=== PATIENT | male | born 1990 | race African-American/Black ===

== ENCOUNTER 2022-04-10 20:28 | Emergency (ER) | payer BC ==
[2022-04-10] MEDS ORDERED: LIDOCAINE 1% MPF 5 ML VIAL ONE (20:42)
--- NOTE | 2022-04-10 21:18 | ER ---
Nurse's Notes [facility] Name: Elian Gonzalez Age: 31 yrs Sex: Male : 1990 Arrival Date: 04/10/2022 Time: 20:29 Bed 6 Private MD: Diagnosis: Laceration without foreign body of left forearm Presentation: 04/10 20:36 Chief complaint: Patient states: States 'I've been trying to go to medical [facility] for my ll3 anxiety and they wouldn't let me go so I cut myself", states cutting self is a "stress reliever", denies pain at this time. Coronavirus screen: Vaccine status: Patient reports receiving the 2nd dose of the covid vaccine. At this time, the client does not indicate any symptoms associated with coronavirus-19. Ebola Screen: No symptoms or risks identified at this time. Initial Sepsis Screen: Does the patient meet any 2 criteria? No. Patient's initial sepsis screen is negative. Does the patient have a suspected source of infection? No. Patient's initial sepsis screen is negative. Risk Assessment: Do you want to hurt yourself or someone else? Patient reports desire/thoughts of hurting themselves or someone else. Provider notified. Other: States cutting self is a "stress reliever". Onset of symptoms was April 10, 2022 at 18:30. 20:36 Method Of Arrival: Law Enforcement: [place] [employer] ll3 20:36 Acuity: CHRISTELLE 3 ll3 Triage Assessment: 20:40 General: Appears comfortable, Behavior is calm, cooperative. Pain: Denies pain. Neuro: ll3 Level of Consciousness is awake, alert, obeys commands, Oriented to person, place, time, situation. Derm: Wound noted left arm Reports Cutting self Denies pain. Musculoskeletal: Circulation, motion, and sensation intact. Historical: - Allergies: 20:40 No Known Allergies; ll3 - Home Meds: 20:40 Depakote Oral [Active]; Ritalin Oral [Active]; Cogentin Oral [Active]; ll3 - PMHx: 20:40 Schizophrenia; Depressive disorder; Anxiety; ADHD; Bipolar disorder; ll3 - PSHx: 20:40 None; ll3 - Immunization history:: Client reports receiving the 2nd dose of the Covid vaccine. - Social history:: Smoking status: Patient denies any tobacco usage or history of. Screenin:29 Abuse screen: Denies threats or abuse. Denies injuries from another. Nutritional lg3 screening: No deficits noted. Tuberculosis screening: No symptoms or risk factors identified. Fall Risk None identified. Assessment: 21:29 General: Appears in no apparent distress. comfortable, Behavior is calm, cooperative. lg3 Pain: Denies pain. Neuro: No deficits noted. Level of Consciousness is awake, alert, obeys commands, Oriented to person, place, time, situation. Cardiovascular: No deficits noted. Denies chest pain, shortness of breath, Capillary refill < 3 seconds Clubbing of nail beds is absent JVD is absent Patient's skin is warm and dry. Respiratory: No deficits noted. Airway is patent Trachea midline Respiratory effort is even, unlabored, Respiratory pattern is regular, symmetrical, Breath sounds are clear bilaterally. Denies shortness of breath. GI: No deficits noted. No signs and/or symptoms were reported involving the gastrointestinal system. Abdomen is flat, non-distended. : No deficits noted. No signs and/or symptoms were reported regarding the genitourinary system. EENT: No deficits noted. No signs and/or symptoms were reported regarding the EENT system. Derm: Wound noted left arm X3. Musculoskeletal: No deficits noted. No signs and/or symptoms reported regarding the musculoskeletal system. Circulation, motion, and sensation intact. Range of motion: intact in all extremities. Injury Description: Laceration sustained to left arm. Vital Signs: 20:36 BP 121 / 82; Pulse 71; Resp 16; Temp 98.3(O); Pulse Ox 99% on R/A; Weight 102.06 kg ll3 (R); Height 6 ft. 1 in. (185.42 cm) (R); Pain 0/10; 21:29 BP 122 / 76; Pulse 70; Resp 17 S; Pulse Ox 100% on R/A; lg3 20:36 Body Mass Index 29.68 (102.06 kg, 185.42 cm) ll3 ED Course: 20:29 Patient arrived in ED. mw2 20:31 Geraldine Crews F[facility]C is [facility]. kb 20:31 Dennis Dugan MD is Attending Physician. kb 20:37 Nancie Davis, NIKITA is Primary Nurse. lg3 20:39 Triage completed. ll3 20:40 Arm band placed on Patient placed in an exam room, on a stretcher, on pulse oximetry. ll3 21:29 Patient has correct armband on for positive identification. Bed in low position. Call lg3 light in reach. Side rails up X2. corrections officers at bedside. Client placed on continuous cardiac and pulse oximetry monitoring. NIBP monitoring applied. 21:29 Assist provider with laceration repair on left arm using sutures. Set up tray. lg3 Performed by Geraldine HODGES Dressed with Kerlix, Patient tolerated well. Patient did not have IV access during this emergency room visit. Administered Medications: 21:29 Drug: Lidocaine (1 %) 1 vials Volume: 20 ml; Route: Infiltration; Site: affected area; lg3 Medication: 21:29 VIS not applicable for this client. lg3 Outcome: 21:17 Discharge ordered by . kb 21:29 Discharged to Law Enforcement lg3 21:29 Condition: stable 21:29 Discharge instructions given to patient, Instructed on discharge instructions, follow up and referral plans. wound care, Demonstrated understanding of instructions, follow-up care, wound care. 21:54 Patient left the ED. lg3 Signatures: Geraldine Crews FNP-C FNP-Lavon Jin mw2 Nancie Davis, RN RN lg3 Neena Olmos, RN RN ll3
--- NOTE | 2022-04-10 21:18 | EDPHYS ---
Physician Documentation [facility] Name: Elian Gonzalez Age: 31 yrs Sex: Male : 1990 Arrival Date: 04/10/2022 Time: 20:29 Bed 6 Private MD: ED Physician Dennis Dugan HPI: 04/11 00:30 This 31 yrs old Black Male presents to ER via Law Enforcement with complaints of kb laceration. 00:30 This 31 yrs old Black Male presents to ER via Law Enforcement with complaints of kb laceration. 00:30 The patient has a laceration related to: cut self occurred [facility], and there are no kb complicating factors. The injury was self inflicted. The laceration(s) is(are) located on the dorsal aspect of left forearm. Onset: The symptoms/episode began/occurred today. Associated signs and symptoms: The patient has no apparent associated signs or symptoms. The patient has experienced a previous episode. The patient has not recently seen a physician. Patient reports cutting his left forearm 3 times with a razor blade. States he had cut himself in the same areas a month and a half ago. Denies suicidal ideations.. Historical: - Allergies: 04/10 20:40 No Known Allergies; ll3 - Home Meds: 20:40 Depakote Oral [Active]; Ritalin Oral [Active]; Cogentin Oral [Active]; ll3 - PMHx: 20:40 Schizophrenia; Depressive disorder; Anxiety; ADHD; Bipolar disorder; ll3 - PSHx: 20:40 None; ll3 - Immunization history:: Client reports receiving the 2nd dose of the Covid vaccine. - Social history:: Smoking status: Patient denies any tobacco usage or history of. ROS: 04/11 00:29 Constitutional: Negative for fever, chills, and weight loss. kb Skin: Positive for laceration(s), of the dorsal aspect of left forearm. All other systems are negative. Exam: 00:29 Constitutional: This is a well developed, well nourished patient who is awake, alert, kb and in no acute distress. Head/Face: Normocephalic, atraumatic. ENT: Moist Mucous membranes Cardiovascular: Regular rate and rhythm with a normal S1 and S2. No gallops, murmurs, or rubs. No pulse deficits. Respiratory: Respirations even and unlabored. No increased work of breathing. Talking in full sentences MS/ Extremity: Pulses equal, no cyanosis. Neurovascular intact. Full, normal range of motion. Neuro: Awake and alert, GCS 15, oriented to person, place, time, and situation. Moves all extremities. Normal gait. Psych: Awake, alert, with orientation to person, place and time. Behavior, mood, and affect are within normal limits. 00:29 Skin: injury, laceration(s), the wound is approximately 4 cm(s), of the dorsal aspect of left forearm, the second wound is approximately 2.5 cm(s), of the dorsal aspect of left forearm, the third wound is approximately 2.5 cm(s), of the dorsal aspect of left forearm, that can be described as clean, no foreign body, linear, without bleeding. Vital Signs: 04/10 20:36 BP 121 / 82; Pulse 71; Resp 16; Temp 98.3(O); Pulse Ox 99% on R/A; Weight 102.06 kg ll3 (R); Height 6 ft. 1 in. (185.42 cm) (R); Pain 0/10; 21:29 BP 122 / 76; Pulse 70; Resp 17 S; Pulse Ox 100% on R/A; lg3 20:36 Body Mass Index 29.68 (102.06 kg, 185.42 cm) ll3 Laceration: 04/11 00:27 Wound Repair of 2.5cm ( 1.0in ) subcutaneous laceration to dorsal aspect of left kb forearm. Linear shaped.. Distal neuro/vascular/tendon intact. Anesthesia: Wound infiltrated with 2 mls of 1% lidocaine. Wound prep: Extensive cleansing with hibiclenz by ar, Wound irrigation with saline by ar. Skin closed with 4 4-0 Prolene using 2 cruciate knots, 2 simple sutures. Patient tolerated well. 00:27 Wound Repair of 4cm ( 1.6in ) subcutaneous laceration to dorsal aspect of left forearm. kb Linear shaped.. Distal neuro/vascular/tendon intact. Anesthesia: Wound infiltrated with 3 mls of 1% lidocaine. Wound prep: Extensive cleansing with hibiclenz by me, Wound irrigation with saline by me. Skin closed with 5 4-0 Prolene using 3 cruciate knots, 2 simple sutures. Patient tolerated well. 00:27 Wound Repair of 2.5cm ( 1.0in ) subcutaneous laceration to dorsal aspect of left kb forearm. Linear shaped.. Distal neuro/vascular/tendon intact. Anesthesia: Wound infiltrated with 2 mls of 1% lidocaine. Wound prep: Extensive cleansing with hibiclenz by me, Wound irrigation with saline by me. Skin closed with 4 4-0 Prolene using 2 cruciate knots, 2 simple sutures. Patient tolerated well. MDM: 04/10 20:31 Patient medically screened. kb 04/11 00:27 Data reviewed: vital signs, nurses notes. Data interpreted: Pulse oximetry: on room air kb is 100 %. Interpretation: normal. Counseling: I had a detailed discussion with the patient and/or guardian regarding: the historical points, exam findings, and any diagnostic results supporting the discharge/admit diagnosis, the need for outpatient follow up, a family practitioner, to return to the emergency department if symptoms worsen or persist or if there are any questions or concerns that arise at home. 04/10 20:32 Order name: Dressing - Wound; Complete Time: 20:37 kb 04/10 20:32 Order name: Gloves, Sterile; Complete Time: 20:37 kb 04/10 20:32 Order name: Prolene, Sutures; Complete Time: 20:37 kb 04/10 20:32 Order name: Setup Suture Tray; Complete Time: 20:37 kb Administered Medications: 04/10 21:29 Drug: Lidocaine (1 %) 1 vials Volume: 20 ml; Route: Infiltration; Site: affected area; lg3 Disposition: 04/11 00:40 Co-signature as Attending Physician, Dennis Dugan MD I was immediately available on-site rn in the Emergency Department for consultation in the care of the patient.. Disposition Summary: 04/10/22 21:17 Discharge Ordered Location: Home Condition: Stable kb Diagnosis - Laceration without foreign body of left forearm kb Followup: kb - With: Emergency Department - When: As needed - Reason: Worsening of condition Followup: kb - With: Private Physician - When: 2 - 3 days - Reason: Recheck today's complaints, Continuance of care, Re-evaluation by your physician Discharge Instructions: - Discharge Summary Sheet kb - Laceration Care, Adult, [id number] kb Forms: - Medication Reconciliation Form kb - Thank You Letter kb - Antibiotic Education kb - Prescription Opioid Use kb Signatures: Geraldine Crews, CONTROL CHEMIST-C CONTROL CHEMIST-Ckb Dennis Dugan MD MD rn Nancie Davis RN RN lg3 Neena Olmos RN RN ll3
[2022-04-11 00:17] VITALS: TEMP 98.3
[2022-04-11 00:20] VITALS: BP 122/76; O2SAT 100
== END 2022-04-10 21:54 | disposition home or self-care (01) ==
LOC: ER 20:28
PROC: 0JQH0ZZ Repair Left Lower Arm Subcutaneous Tissue and Fascia, Open Approach (ICD-10-PCS; principal; 2022-04-10)
DX: S51.812A Laceration without foreign body of left forearm, initial encounter (principal); F20.9 Schizophrenia, unspecified